=== PATIENT | female | born 1970 | race Caucasian/White ===

== ENCOUNTER 2019-09-25 06:00 | Day surgery (SDC) | payer OTHER ==
[2019-09-23 12:20] LABS: HEMATOCRIT 43.3 % (36.0-48.0); HEMOGLOBIN 14.7 g/dL (12-16); MCHC 33.9 g/dL (31.0-37.0); MCV 94.1 fL (80.0-100.0); MEAN PLATELET VOLUME 8.8 fL (7.4-10.4); RBC 4.6 10x6/uL (4.00-5.40); RDW 13.4 % (11.5-14.5); WBC 9.3 10x3/uL (4.8-10.8)
[~2019-09-25] VITALS: Ht 160 cm; Wt 74.8 kg
--- NOTE | ~2019-09-25 | OP ---
PATIENT NAME: [place] [facility] MEDICAL RECORD: [id number] :66 LOCATION:D.OPS ADMISSION DATE: SURGEON: CHERISE CORTEZ DO DATE OF OPERATION: 09/25/2019 PREOPERATIVE DIAGNOSIS: Missing portion of IUD. POSTOPERATIVE DIAGNOSIS: Missing portion of IUD. PRIMARY SURGEON: Cherise Cortez DO ANESTHESIA: General and LMA. PROCEDURE: Operative hysteroscopy, removal of portion of IUD. FINDINGS: Normal appearing external genitalia. Normal appearing vaginal vault. Normal appearing cervix. Uterus sounded to 7 cm. Normal appearing bilateral fallopian tube ostia, portion of IUD seen protruding through the wall of the uterus in the left lower uterine segment. SPECIMENS: Portion of IUD. ESTIMATED BLOOD LOSS: 3 cc. IV FLUIDS: 200 cc. COMPLICATIONS: None. CONDITION: Stable. DESCRIPTION OF PROCEDURE: The risks, benefits, alternatives, indications of procedure were discussed with the patient. She voiced understanding of the procedure and signed consent She was taken to the OR where general anesthesia was administered and found to be adequate. She was placed in the dorsal lithotomy position. She was prepped and draped in the normal sterile fashion. A speculum was placed in the posterior aspect of the vagina and single tooth tenaculum was used to grasp the anterior lip of the cervix. The uterus was sounded to 7 cm. Fascia at the cervix was further dilated to accommodate the hysteroscope. The hysteroscope was inserted into the uterus and normal bilateral fallopian tube ostia were noted. The endometrium appeared atrophic. The portion of the IUD was seen protruding through the wall of the left lower uterine segment and the operative hysteroscopic forceps were used to grasp the portion out of the wall of the uterus and remove the portion of the IUD. At that time, the portion of the IUD was sent to pathology. The hysteroscope was removed from the uterus and all instruments were removed from the vagina with good hemostasis noted at the tenaculum site. All lap, sponge, and instrument counts were correct times 2. The patient tolerated the procedure well and she was taken to the recovery room in stable condition. TRANSINT:[id number] Voice Confirmation ID: [id number] DOCUMENT ID: [id number] OPERATIVE REPORT [id number] [place] [facility] CHERISE CORTEZ DO CC: [id number] DICTATION DATE: 09/26/19 1048 B[facility] MENDER: 09/26/19 1454 [facility] 09/25/19 [place] [id number] [place] [id number]
[~2019-09-25 06:00] MED LIST: CLARITIN 10 MG10 MG PO; MULTI-DAY VITAM1 TAB PO; OMEGA-3100 MG PO; VITAMIN D10000 UNI1 PO
[2019-09-25 06:46] VITALS: BP 112/73; Ht 160 cm; Wt 74.8 kg
[2019-09-25 06:56] LABS: HCG URINE NEGATIVE (NEGATIVE)
--- NOTE | 2019-09-25 06:56 | NUR ---
TEMP 97.7
--- NOTE | 2019-09-25 13:05 | NUR ---
1305 DR. CORTEZ ROUNDS ON PT. FL DIET SERVED
== END 2019-09-25 14:00 | disposition home or self-care (01) ==
LOC: D.OPS 06:00 → D.PAN 08:15 → D.OPS 14:00
PROVIDERS: Anesthesiology; ATTEND Student in an Organized Health Care Education/Training Program
DX: Z97.5 Presence of (intrauterine) contraceptive device (principal)

== ENCOUNTER → 2020-06-09 11:00 | Outpatient (CLI) | payer OTHER ==
[2019-09-25 06:46] VITALS: BMI 29.2
== END | disposition home or self-care (01) ==
LOC: D.MAMMO 11:00
PROVIDERS: ATTEND Student in an Organized Health Care Education/Training Program
DX: Z12.31 Encounter for screening mammogram for malignant neoplasm of breast (principal)